=== PATIENT | female | born 1940 | race African-American/Black ===

== ENCOUNTER → 2019-02-22 | Outpatient (CLI) | payer OTHER ==
[~2019-02-22] MED LIST: AMARYL4 MG PO; COUMADIN 5 MG TA5 M1 PO; ENOXAPARIN80 MG/0.8 SUBQ; LIPITOR10 MG PO; LISINOPRIL40 MG PO; LOSARTAN POTASS50 MG PO; METFORMIN HCL500 MG PO; METFORMIN PO; PRILOSEC 20 MG20 MG PO; ZOCOR 10 MG TAB10 MG PO
== END ==
LOC: CAT 10:09
DX: Z13.6 Encounter for screening for cardiovascular disorders (principal); E78.00 Pure hypercholesterolemia, unspecified; I25.10 Atherosclerotic heart disease of native coronary artery without angina pectoris